=== PATIENT | male | born 1965 | race Asian ===

== ENCOUNTER → 2020-01-10 | Day surgery (SDC) | payer OTHER ==
[~2020-01-10] VITALS: Ht 172.7 cm; Wt 83.9 kg
[~2020-01-10] MED LIST: BUPIVACAINE HCL 0.5% INJ 30 ML VIAL INJ ONE; CEFAZOLIN SOD 1 GM VIAL ONE; CEFAZOLIN SOD 1 GM/NS 50ML 50 ML IV ONE; FENTANYL CITRATE/PF 100MCG/2 ML INJ IV ONE; FENTANYL CITRATE/PF 100MCG/2 ML INJ ONE; LIDOCAINE HCL 1% 30ML-PF VIAL ONE; MIDAZOLAM HCL 2 MG/2 ML VIAL ONE; MUPIROCIN 2% OINT 22 GM TUBE ONE; SODIUM CHLORIDE 0.9% 1000ML 1,000 ML ONE; TETANUS/DIPHTHERIA TOX ADULT 0.5 ML SYR IM ONE; TETANUS/DIPHTHERIA TOX ADULT 0.5 ML SYR ONE
[2020-01-10 11:28] LABS: BASOPHILS % 0.6 % (0.0-1.0); EOSINOPHILS # (AUTO) 0.2 (0.0-0.4); EOSINOPHILS % 2.6 % (0.0-6.0); HEMATOCRIT 48.4 % (38.2-49.6); HEMOGLOBIN 16.4 g/dL (14.0-18.0); LYMPHOCYTES # (AUTO) 1.9 (1.0-3.2); LYMPHOCYTES % 29.5 % (18.0-39.1); MEAN CORPUSCULAR HEMOGLOBIN 29.7 pg (28-32); MEAN CORPUSCULAR HGB CONC 33.9 g/dL (31-35); MEAN CORPUSCULAR VOLUME 87.7 fL (81-99); MONOCYTES # (AUTO) 0.6 (0.2-0.8); MONOCYTES % 9.5 % (4.4-11.3); NEUTROPHILS # (AUTO) 3.7 (2.1-6.9); NEUTROPHILS % 57.3 % (38.7-80.0); PLATELET COUNT 209 x10e3/uL (140-360); RED BLOOD COUNT 5.52 x10e6/uL (4.3-5.7); RED CELL DISTRIBUTION WIDTH 11.5 % (11.7-14.4)
--- NOTE | 2020-01-10 11:30 | NUR ---
clothes in belongings bag, ekg done, iv done, on full monitors, aaox4. bandage on, bleeding controlled, consent on chart, md at bedside. tetnaus done, iv antibiotics done,
[2020-01-10 11:44] LABS: ALANINE AMINOTRANSFERASE 98 IU/L (0-55); ALBUMIN 4.2 g/dL (3.5-5.0); ALBUMIN/GLOBULIN RATIO 1.1 (0.8-2.0); ALKALINE PHOSPHATASE 67 IU/L (40-150); ANION GAP 16.1 mmol/L (8-16); BLOOD UREA NITROGEN 18 mg/dL (7-26); BUN/CREATININE RATIO 17 (6-25); CALCIUM 8.8 mg/dL (8.4-10.2); CARBON DIOXIDE 23 mmol/L (22-29); CHLORIDE 105 mmol/L (98-107); CREATININE, SERUM 1.04 mg/dL (0.72-1.25); EST GLOMERULAR FILTRATION RATE > 60 ML/MIN (60-); GLUCOSE 109 mg/dL (74-118); POTASSIUM 4.1 mmol/L (3.5-5.1); SODIUM 140 mmol/L (136-145)
--- NOTE | 2020-01-10 12:43 | NUR ---
update to juana rn in OR
--- NOTE | 2020-01-10 12:52 | NUR ---
green banded for visitor policy
--- NOTE | 2020-01-10 13:50 | Diagnostic Imaging Report ---
EXAMINATION: HAND 3+ VIEWS RIGHT INDICATION: Trauma COMPARISON: None FINDINGS: Laceration of the distal tip of the third digit with underlying displaced fracture of the third distal phalangeal tuft. No other acute fractures identified. IMPRESSION: Distal third digit laceration with underlying displaced open fracture of the third distal phalangeal tuft. Signed by: Marcos Ibanez MD on 01/10/2020 1:47 PM
[2020-01-10 14:45] VITALS: BP 119/88
--- NOTE | 2020-01-10 21:16 | Operative Report ---
DATE OF PROCEDURE: 01/10/2020 SURGEON: Edwin Hall MD PREOPERATIVE DIAGNOSES: 1. Crush injury, right long finger distal phalanx. 2. Open fracture, right long finger distal phalanx. 3. Laceration of soft tissue and nail bed. POSTOPERATIVE DIAGNOSES: 1. Crush injury, right long finger distal phalanx. 2. Open fracture, right long finger distal phalanx. 3. Laceration of soft tissue and nail bed. PROCEDURES: 1. Open treatment of distal phalanx fracture with percutaneous pinning. 2. Soft tissue repair, 3.0 cm. 3. Nail bed repair. ANESTHESIA: MAC/local. HISTORY: The patient is a 54-year-old [id number] male who earlier today sustained a crushing incomplete amputation of the right long finger distal phalanx when his finger was caught in a piece of machinery. The patient was seen in the emergency room. Radiographs show a fracture of the distal 3rd of the distal phalanx. The wound shows incomplete amputation of the distal phalanx and the fracture fragments are exposed. The risks, benefits, and alternatives of surgery were discussed with the patient and the family. They are prepared to undergo the procedure as outlined. PROCEDURE IN DETAIL: The patient was marked preoperatively in the holding area. He was brought to the operating theater and after the induction of adequate IV sedation, he was prepped and draped in a supine position and a digital block was placed around the base of the right long finger. The block consisted of a 50:50 mixture of 1% xylocaine plain and 0.5% Marcaine plain and a total of 7 mL was used. After the block was placed, the tourniquet was placed around the base of the right long finger. At this point, the fluoroscope was brought in and reduction of the fracture fragments is performed and a 0.035 K-wire was driven percutaneously across the fracture fragments to maintain the minute satisfactory anatomic alignment. At this point, the wound was irrigated and all particulate matter was then removed. The soft tissue was repaired with 5-0 nylon in an interrupted fashion after sharply debriding the edges of devitalized tissue. The nail plate was removed using a [place] elevator and the nail bed was repaired using 6-0 chromic sutures in an interrupted fashion. An artificial nail stent was placed beneath the eponychial fold and it was sutured to the eponychial fold in the distal soft tissues of the finger. Bactroban ointment, Xeroform gauze, and a sterile dressing were applied. The tourniquet was removed. The finger pinked up nicely and the wound was noted to be hemostatic. The patient was then returned to recovery room in satisfactory condition and discharged with a postoperative instruction sheet as well as a followup appointment. MD AKBAR Ferraro/ELVER /[id number]
== END | disposition home or self-care (01) ==
LOC: ER 10:58 → OR 13:21
PROVIDERS: ATTEND Plastic Surgery
DX: S67.192A Crushing injury of right middle finger, initial encounter (principal); S62.632B Displaced fracture of distal phalanx of right middle finger, initial encounter for open fracture; W31.9XXA Contact with unspecified machinery, initial encounter
CPT/HCPCS: 11760; 26765; 36415; 73130; 80053; 85025; 86850; 86900; 90471; 90714; 93005; 99285; C1713; J0690; J2001; J2250; J3010; J7030

== ENCOUNTER 2020-03-19 10:46 | Outpatient (RCR) | payer OTHER | END 2020-03-24 | LOC: OT 10:46 | PROVIDERS: ATTEND Plastic Surgery | DX: S67.192A Crushing injury of right middle finger, initial encounter (principal); S62.632B Displaced fracture of distal phalanx of right middle finger, initial encounter for open fracture; W31.9XXA Contact with unspecified machinery, initial encounter ==

== ENCOUNTER 2020-04-09 13:00 | Outpatient (RCR) | payer OTHER | END 2020-04-23 | LOC: OT 13:00 | PROVIDERS: ATTEND Plastic Surgery | DX: S67.192A Crushing injury of right middle finger, initial encounter (principal); S62.632B Displaced fracture of distal phalanx of right middle finger, initial encounter for open fracture; W31.9XXA Contact with unspecified machinery, initial encounter ==